=== PATIENT | male | born 1945 | race Caucasian/White ===

== ENCOUNTER 2020-11-07 23:40 | Emergency (ER) | payer MEDICARE, SELFPAY ==
--- NOTE | ~2020-11-07 | XR_ITS ---
XR chest 2V 11/08/2020 00:06 Indication: Shortness of breath Procedure: PA and lateral views of the chest Comparison: Comparison to multiple prior studies sequentially, with oldest reviewed study dated 10/2016. Findings: Status post median sternotomy for CABG. Heart size normal. Chronic scarring right lower ezequiel g zone. No acute focal pneumonia, edema or effusion. No acute osseous abnormality. Impression: 1: No acute cardiopulmonary disease. Reviewed, dictated and finalized at location A. Impression: 1: No acute cardiopulmonary disease.
[2020-11-07 23:46] VITALS: BP 161/82; PULSE 69; RESP 18; TEMP 36.3; O2SAT 98
--- NOTE | 2020-11-08 01:37 | ED.EPISTAXIS ---
HPI - Epistaxis General Chief complaint: Epistaxis Stated complaint: nosebleed Time Seen by Provider: 11/08/20 00:49 Source: patient and RN notes reviewed Mode of arrival: ambulatory Limitations: no limitations History of Present Illness HPI Narrative: This is a 75 year old male with history CAD , stents, CABG on plavix and aspirin who presents for evaluation of epistaxis. He states he felt like something was in his right nose . He soon developed bleeding from his right nostril. He held pressure to his nose for 20 minutes but he was unable to get his bleeding to stop. He has been applying pressure to his nose in triage for 1 hour so he no long has bleeding. He denies postnasal bleeding. He denies being lightheaded or dizzy. Related Data Allergies Allergy/AdvReac Type Severity Reaction Status Date / Time morphine Allergy Unknown Vomiting Verified 05/01/19 05:48 sulfamethoxazole Allergy Unknown Unknown Verified 05/01/19 05:48 trimethoprim Allergy Unknown Unknown Verified 05/01/19 05:48 Review of Systems Review of Systems: All systems reviewed & are unremarkable except as noted in HPI and below PMFSH Past Medical History Medical History (Updated 11/08/20 @ 03:02 by Rdaha Norman MD) Coronary artery disease Diabetes mellitus type 2 in nonobese Surgical History Surgical History (Updated 11/08/20 @ 02:55 by Radha Norman MD) Hx of CABG Family History Family History (Updated 12/11/13 @ 07:13 by DOCTOR UNKNOWN) Sibling Family history of chronic obstructive pulmonary disease Grandparent Diabetes mellitus Mother Patient's mother is Father Patient's father is Social History Social History Smoking end date: 04/16/87 Alcohol intake: never Exam Const: General: no acute distress and alert Orientation/consciousness: patient oriented x3 HENMT: General nose exam: Other nasal findings present (clear bilateral nasal mucous, right nostril no active bleeding. T) Face and sinus: normal facial exam and sinuses nontender Mouth: Yes Normal oral and palatal mucosa present, Yes lip normal, Yes oropharynx normal and Yes moist mucous membranes Resp: Effort & Inspection: normal respiratory effort Skin: General skin exam: normal color Rashes: no rashes Neuro: General: patient oriented x3 and moves all extremities Course Reevaluation(s) Reevaluation #1: PAtient has not had bleeding in 2 hours. I discussed discharge plan and treatment Date: 11/08/20 Time: 02:56 Vital Signs Vital signs: Vital Signs Temperature 97.3 F L 11/07/20 23:46 Pulse Rate 69 11/07/20 23:46 Respiratory Rate 18 11/07/20 23:46 Blood Pressure 161/82 H 11/07/20 23:46 Pulse Oximetry 98 11/07/20 23:46 Temperature 97.3 F L 11/07/20 23:46 Pulse Rate 70 11/08/20 03:15 Respiratory Rate 20 11/08/20 03:15 Blood Pressure 156/80 H 11/08/20 03:15 Pulse Oximetry 100 11/08/20 03:15 Discharge Plan Discharge Clinical Impression: Epistaxis Patient Disposition: Home, Self-Care Condition: Stable Instructions: Antibiotic Form, Nosebleed (ED) Prescriptions: No Action tamsulosin [Flomax] 0.4 mg capsule 0.4 mg PO DAILY Qty: 7 RF: 0 Follow-up/Referrals: Alexander Klein MD [Physician] - [facility],Jin Parra MD [Primary Care Provider] -
[2020-11-08] MEDS: OXYMETAZOLINE HCL 0.05% NAS 15 ML BTL (*BKC) 1 SPRAY NASAL (01:50)
[2020-11-08 03:15] VITALS: BP 156/80; PULSE 70; RESP 20; O2SAT 100
== END 2020-11-08 03:15 | disposition home or self-care (01) ==
PROVIDERS: Emergency Provider General Practice; PCP Internal Medicine
DX: R04.0 Epistaxis (principal); I25.10 Atherosclerotic heart disease of native coronary artery without angina pectoris; E11.9 Type 2 diabetes mellitus without complications; Z95.1 Presence of aortocoronary bypass graft; Z95.5 Presence of coronary angioplasty implant and graft; Z79.01 Long term (current) use of anticoagulants; Z79.82 Long term (current) use of aspirin
CPT/HCPCS: 71046; 99283; A9270

== ENCOUNTER 2020-11-24 20:47 | Emergency (ER) | payer MEDICARE, SELFPAY ==
[2020-11-24 21:34] VITALS: BP 179/83; PULSE 69; RESP 20; TEMP 36.7; O2SAT 99
[2020-11-24 22:47] VITALS: BP 139/81; PULSE 65; TEMP 36.4; O2SAT 96
--- NOTE | 2020-11-25 00:05 | PC.NURSE ---
Dr. Moscoso placed 5.5 Rhinorocket to right nare. Tolerated well, no bleeding noted to either nare at this time.
--- NOTE | 2020-11-25 00:07 | ED.EPISTAXIS ---
HPI - Epistaxis General Chief complaint: Epistaxis Stated complaint: nose bleed Time Seen by Provider: 11/24/20 23:50 Source: patient and family Mode of arrival: ambulatory Limitations: no limitations History of Present Illness HPI Narrative: 75-year-old with a history of CAD on Plavix here with complaints of bleeding from both nares while he was driving home earlier. Patient states he had his nose cauterized on the right side by Dr. Sheridan in [place] . His states that they called ENT and he was told to go to the ER to get the nose packed. complaint: epistaxis Location: right nostril Duration: now resolved Context: other anticoagulant use Related Data Allergies Allergy/AdvReac Type Severity Reaction Status Date / Time morphine Allergy Unknown Vomiting Verified 05/01/19 05:48 sulfamethoxazole Allergy Unknown Unknown Verified 05/01/19 05:48 trimethoprim Allergy Unknown Unknown Verified 05/01/19 05:48 ciprofloxacin [From Cipro] Allergy Unknown Verified 11/24/20 21:39 Review of Systems Review of Systems: All systems reviewed & are unremarkable except as noted in HPI and below Constitutional: Constitutional: Reports no additional constitutional complaints Eyes: Eyes: Reports no additional eye complaints ENT: Reports as per HPI Cardiovascular: Cardiovascular: Reports no additional cardiovascular complaints Respiratory: Respiratory: Reports no additional respiratory complaints Gastrointestinal: Gastrointestinal: Reports no additional gastrointestinal complaints Musculoskeletal: Musculoskeletal: Reports no additional musculoskeletal complaints PMFSH Past Medical History Medical History Coronary artery disease Diabetes mellitus type 2 in nonobese Surgical History Surgical History Hx of CABG Family History Family History Sibling Family history of chronic obstructive pulmonary disease Grandparent Diabetes mellitus Mother Patient's mother is Father Patient's father is Social History Social History Smoking end date: 04/16/87 Alcohol intake: never Exam Narrative: GENERAL: Well-appearing, well-nourished, and in no acute distress. HEAD: Normocephalic, atraumatic. EYES: PERRLA and EOMI. ENT: Minor bleeding present in the right nares, left is normal NECK: Supple. CHEST: Clear to auscultation. No respiratory distress. HEART: Regular rate and rhythm. No murmur heard. Normal peripheral pulses. EXTREMITIES: Normal range of motion. No edema. SKIN: Warm, dry, no rash. NEURO: No focal deficits. Alert and oriented x3. PSYCH: Normal mood and affect. Course Vital Signs Vital signs: Vital Signs Temperature 36.7 C 11/24/20 21:34 Pulse Rate 69 11/24/20 21:34 Respiratory Rate 20 11/24/20 21:34 Blood Pressure 179/83 H 11/24/20 21:34 Pulse Oximetry 99 11/24/20 21:34 Temperature 36.4 C 11/24/20 22:47 Pulse Rate 65 11/24/20 22:47 Respiratory Rate 20 11/24/20 21:34 Blood Pressure 139/81 11/24/20 22:47 Pulse Oximetry 96 11/24/20 22:47 Procedures Epistaxis Control right: Epistaxis Control Date: 11/25/20 Direct Inspection: yes Cautery Used: none Device Inserted: nasal tampon Device Size: 5 Patient Tolerated Procedure: well Epistaxis Control Narrative: no further bleeding Discharge Plan Discharge Clinical Impression: Epistaxis Patient Disposition: Home, Self-Care Condition: Stable Instructions: Antibiotic Form, Nosebleed (ED) Additional Instructions: Continue home medication, follow-up with your ENT doctor can take Tylenol for pain Prescriptions: No Action tamsulosin [Flomax] 0.4 mg capsule 0.4 mg PO DAILY Qty: 7 RF: 0 Follow-up/Referrals: Elena
[2020-11-25 00:20] VITALS: BP 132/80; PULSE 66; RESP 18; O2SAT 98
== END 2020-11-25 00:20 | disposition home or self-care (01) ==
PROVIDERS: Emergency Provider Family Medicine; PCP Internal Medicine
DX: R04.0 Epistaxis (principal); I25.10 Atherosclerotic heart disease of native coronary artery without angina pectoris; E11.9 Type 2 diabetes mellitus without complications; Z79.02 Long term (current) use of antithrombotics/antiplatelets
CPT/HCPCS: 30901; 99282

== ENCOUNTER 2021-09-07 19:14 | Emergency (ER) | payer MEDICARE, SELFPAY ==
[2021-09-07] VITALS (23 sets, daily range): BP systolic 104–142; BP diastolic 60–91; PULSE 74–84; RESP 5–21; TEMP 36.2–36.4; O2SAT 95–100
--- NOTE | ~2021-09-07 | CT_ITS ---
EXAMINATION: CT abdomen pelvis w con DATE: 09/07/2021 21:41 INDICATION: Abdominal pain TECHNIQUE: Computed tomography (CT) of the abdomen and pelvis was performed with 75 mL Omnipaque 300 intravenous contrast. Automated exposure control and iterative reconstruction technique were employed . The dose-length product was 853.42 mGy-cm. COMPARISON: 02/26/2018. FINDINGS: Lower thorax: Bibasilar scar/atelectasis. Calcified granulomas. Heavy coronary artery calcification a nd/or stents. Liver: Left lobe lesion too small to characterize, but likely cyst. Biliary/Gallbladder: Gallbladder is normal. No bile duct dilation. Pancreas: No mass or duct dilation. Spleen: Normal. Adrenals:No mass. Kidneys: Multiple bilateral renal cortical cysts, parapelvic cyst, and lesions that are too small to characterize but also most likely represent cysts. No hydronephrosis. GI tract: Marked gastric distention. No large or small bowel dilation. Mostly fluid-filled colon as c an be seen with diarrheal illness. Normal appendix. Mesentery/Peritoneum: No ascites, mass, or free air. Retroperitoneum: No mass. Mild atherosclerotic arterial calcifications. Pelvis: Mild bladder wall thickening, likely secondary to outlet obstruction from prostatomegaly. Soft Tissues: Small umbilical and bilateral inguinal fat-containing hernias. Bones: No acute osseous finding. IMPRESSION: Marked gastric distention, correlate with any history of gastric motility disorders. This finding may be normal for this patient or secondary to a mild functional ileus. Fluid-filled colon as can be see n with diarrheal illness. Otherwise no acute abdominopelvic process detected. Reviewed, dictated and finalized at location K. IMPRESSION: Marked gastric distention, correlate with any history of gastric motility disor ders. This finding may be normal for this patient or secondary to a mild functi onal ileus. Fluid-filled colon as can be seen with diarrheal illness. Otherwise no acute abdominopelvic process detected.
[2021-09-07 19:46] LABS: Basophils Percent Auto 0.2 % (0.2-1.2); Eosinophils Absolute Auto 0.5 K/mm3 (0-0.3); Eosinophils Percent Auto 3.7 % (0-4.4); Hematocrit 47.8 % (42.0-52.0); Hemoglobin 15.5 g/dL (14.0-18.0); Immature Granulocyte Absolute 0.04 K/mm3 (0.00-0.031); Immature Granulocyte Percent A 0.3 % (0-0.5); Lymphocytes Absolute Auto 2.16 K/mm3 (0.9-3.2); Lymphocytes Percent Auto 17.9 % (18.3-44.2); Mean Corpuscular HGB Conc 32.4 g/dl (32-36); Mean Corpuscular Volume 92.6 fl (80-100); Monocytes Absolute Auto 1.1 K/mm3 (0.1-0.6); Monocytes Percent Auto 9.5 % (2.6-8.5); Neutrophils Absolute Auto 8.2 K/mm3 (1.3-6.7); Neutrophils Percent Auto 68.4 % (45.5-73.1); Platelet Count Result 256 k/mm3 (150-375); Red Blood Count 5.16 M/mm3 (4.6-6.20); Red Cell Distribution Width 13.8 % (11.5-14.5); White Blood Count 12.1 K/mm3 (4.5-10.0)
[2021-09-07 19:56] LABS: Alanine Aminotransferase 40 U/L (6-50); Albumin Level 4.8 g/dL (3.5-5.1); Alkaline Phosphatase 96 U/L (38-126); Anion Gap 10 mmol/L (8-16); Aspartate Amino Transferase 33 U/L (17-59); Bilirubin,Total 1.8 mg/dL (0.2-1.3); Blood Urea Nitrogen 30 mg/dL (9-20); Carbon Dioxide 23 mmol/L (22-30); Chloride 102 mmol/L (98-107); Estimated CRCL calculation 33 ml/min; Estimated Glomerular Filt Rate 37; Glucose 91 mg/dL (65-110); Lipase 467 U/L (23-300); Potassium 4.5 mmol/L (3.4-5.0); Sodium 135 mmol/L (137-145)
[2021-09-07 19:59] LABS: Appearance Urine Clear (Clear); Bilirubin Urine Negative (Negative); Blood Urine Negative (Negative); Color Urine Yellow (Yellow); Glucose Urine UA 2+ mg/dL (Negative); Ketones Urine Negative (Negative); Leukocyte Esterase Ur Negative LEU/UL (Negative); Nitrate Urine Negative (Negative); Protein Urine Negative (Negative); Urobilinogen Urine 0.2 mg/dL (<2.0); pH Urine 5.5 (5.0-9.0)
[2021-09-07 20:26] LABS: RBC Urine 0-2 /hpf (0-2); Squamous Epithelial Cell Urine Rare /hpf (Few); WBC Urine 0-3 /hpf
[2021-09-07 20:27] LABS: Add Urine Microscopic? YES
--- NOTE | 2021-09-07 20:28 | ED.ABDPAIN ---
HPI - Abdominal Pain General Chief Complaint: Abdominal Pain Stated Complaint: Bloating, low blood sugars Time Seen by Provider: 09/07/21 20:12 History of Present Illness HPI narrative: Patient is a 76 year-old male complaining of upper abdominal pain, 5 out of 10, dull, nonradiating accompanied by nausea that started 5 days ago. Patient denies any chest pain, shortness of breath, vomiting, diarrhea, urinary symptoms, fever or chills. Related Data Allergies Allergy/AdvReac Type Severity Reaction Status Date / Time morphine Allergy Unknown Vomiting Verified 05/01/19 05:48 sulfamethoxazole Allergy Unknown Unknown Verified 05/01/19 05:48 trimethoprim Allergy Unknown Unknown Verified 05/01/19 05:48 ciprofloxacin [From Cipro] Allergy Unknown Verified 11/24/20 21:39 Review of Systems Review of Systems: All systems reviewed & are unremarkable except as noted in HPI and below Constitutional: Constitutional: Denies body ache(s), Denies chills, Denies excessive sweating, Denies fatigue, Denies fever(s), Denies headache(s), Denies lethargy, Denies malaise, Denies weakness and Denies weight loss Eyes: Eyes: Denies blurry vision, Denies change in vision and Denies loss of vision ENT: Denies dizziness, Denies ear discharge, Denies headache(s), Denies lip swelling, Denies epistaxis, Denies nasal congestion, Denies neck pain, Denies throat swelling and Denies tongue swelling Cardiovascular: Cardiovascular: Denies chest pain, Denies chest pain at rest, Denies chest pain with activity, Denies diaphoresis, Denies rapid heart rate, Denies edema, Denies irregular heart rhythm, Denies lightheadedness, Denies palpitations, Denies dyspnea and Denies dyspnea on exertion Respiratory: Respiratory: Denies chest congestion, Denies cough, Denies hemoptysis, Denies dyspnea and Denies dyspnea on exertion Gastrointestinal: Gastrointestinal: Denies melena, Denies hematochezia, Denies diarrhea, Denies vomiting and Denies hematemesis Musculoskeletal: Musculoskeletal: Denies abnormal gait, Denies deformity, Denies joint swelling, Denies limited range of motion, Denies neck pain and Denies numbness Neurologic: Denies Abnormal speech present, Denies abnormal gait, Denies confusion, Denies dizziness, Denies headache(s), Denies focal weakness, Denies loss of vision, Denies numbness, Denies Other visual disturbances, Denies Sensory deficit (Neuro) and Denies weakness Psychiatric: Psychiatric: Denies confusion, Denies depression, Denies auditory hallucinations, Denies homicidal ideation and Denies suicidal ideation Endocrine: Endocrine: Denies cold intolerance, Denies excessive sweating, Denies fatigue, Denies heat intolerance and Denies palpitations Hematologic/Lymphatic: Hematologic/Lymphatic: Denies easy bleeding and Denies easy bruising Allergic/Immunologic: Allergic/Immunologic: Denies lip swelling, Denies throat swelling and Denies tongue swelling PMFSH Past Medical History Medical History Coronary artery disease Diabetes mellitus type 2 in nonobese Surgical History Surgical History Hx of CABG Family History Family History Sibling Family history of chronic obstructive pulmonary disease Grandparent Diabetes mellitus Mother Patient's mother is Father Patient's father is Social History Social History Smoking end date: 04/16/87 Alcohol intake: never Exam Const: General: cooperative, healthy appearing, comfortable, no acute distress, well developed, alert and awake; No confusion Orientation/consciousness: oriented to person, oriented to place, oriented to time, patient oriented x3 and No confusion Limitations: no limitations HENMT: Head: normal to inspection, normocephalic and atraumati
[2021-09-07] MEDS: ONDANSETRON INJ 4 MG/2 ML VIAL IV PUSH (21:22)
== END 2021-09-07 22:59 | disposition home or self-care (01) ==
PROVIDERS: Emergency Provider Emergency Medicine; PCP Internal Medicine
DX: R10.10 Upper abdominal pain, unspecified (principal); I25.10 Atherosclerotic heart disease of native coronary artery without angina pectoris; E11.9 Type 2 diabetes mellitus without complications
CPT/HCPCS: 36415; 74177; 80053; 81001; 83690; 85025; 96374; 99284; J2405; Q9967

== ENCOUNTER 2022-04-20 23:11 | Emergency (ER) | payer MEDICARE, SELFPAY ==
[2022-04-20 23:15] VITALS: BP 115/62; PULSE 63; RESP 18; TEMP 36.6; O2SAT 99
[2022-04-20 23:37] LABS: Basophils Percent Auto 0.1 % (0.2-1.2); Eosinophils Absolute Auto 0.8 K/mm3 (0-0.3); Eosinophils Percent Auto 5.6 % (0-4.4); Hematocrit 44.5 % (42.0-52.0); Hemoglobin 14.4 g/dL (14.0-18.0); Immature Granulocyte Absolute 0.06 K/mm3 (0.00-0.031); Immature Granulocyte Percent A 0.4 % (0-0.5); Lymphocytes Absolute Auto 1.74 K/mm3 (0.9-3.2); Mean Corpuscular HGB Conc 32.4 g/dl (32-36); Mean Corpuscular Hemoglobin 30.3 pg (26-34); Mean Corpuscular Volume 93.5 fl (80-100); Mean Platelet Volume 10.2 fl (7.4-10.4); Monocytes Absolute Auto 1.3 K/mm3 (0.1-0.6); Monocytes Percent Auto 8.8 % (2.6-8.5); Neutrophils Absolute Auto 10.6 K/mm3 (1.3-6.7); Neutrophils Percent Auto 73.1 % (45.5-73.1); Platelet Count Result 219 k/mm3 (150-375); Red Blood Count 4.76 M/mm3 (4.6-6.20); Red Cell Distribution Width 13.3 % (11.5-14.5); White Blood Count 14.5 K/mm3 (4.5-10.0)
[2022-04-21 00:03] LABS: Alanine Aminotransferase 27 U/L (6-50); Albumin Level 4.2 g/dL (3.5-5.1); Alkaline Phosphatase 99 U/L (38-126); Anion Gap 5 mmol/L (8-16); Aspartate Amino Transferase 23 U/L (17-59); Bilirubin,Total 0.8 mg/dL (0.2-1.3); Blood Urea Nitrogen 37 mg/dL (9-20); Carbon Dioxide 27 mmol/L (22-30); Chloride 102 mmol/L (98-107); Estimated CRCL calculation 32 ml/min; Estimated Glomerular Filt Rate 37; Glucose 133 mg/dL (65-110); Potassium 4.5 mmol/L (3.4-5.0); Sodium 134 mmol/L (137-145)
--- NOTE | 2022-04-21 04:22 | ED.NAVMDI ---
HPI - Nausea/Vomiting/Diarrhea General Chief complaint: Nausea/Vomiting/Diarrhea Stated complaint: loose stools Time Seen by Provider: 04/21/22 04:12 History of Present Illness HPI Narrative: This is a 76-year-old male with past medical history of CKD, coronary artery disease, diabetes, who presents to the emergency department with multiple episodes of diarrhea. Patient states this began this morning. He denies any known sick contacts, recent travel or eating foul or poorly cooked foods. He denies blood in the stool. He states he had 1 episode of loss of consciousness while on the toilet. He did not hit his head. He denies chest pain, shortness of breath or cold sweats. He is primarily concerned that he may have worsened his kidney function. Related Data Home Medications Medication Instructions Recorded Confirmed aspirin 81 mg tablet,delayed 81 mg PO DAILY 09/21/21 release (Adult Aspirin Regimen) atorvastatin 80 mg tablet 80 mg PO DAILY 09/21/21 carvedilol 25 mg tablet (Coreg) 25 mg PO BID 09/21/21 clopidogrel 75 mg tablet (Plavix) 75 mg PO DAILY 09/21/21 coenzyme Q10 200 mg capsule (Co 200 mg PO DAILY 09/21/21 Q-10) dapagliflozin 10 mg tablet 10 mg PO DAILY 09/21/21 (Farxiga) enalapril maleate 10 mg tablet 10 mg PO DAILY 09/21/21 finasteride 5 mg tablet 5 mg PO DAILY 09/21/21 fluoxetine 20 mg capsule (Prozac) 20 mg PO DAILY 09/21/21 glimepiride 2 mg tablet 2 mg PO QAM 09/21/21 guaifenesin 600 mg tablet, 600 mg PO BID 09/21/21 extended release 12 hr (Mucinex) loratadine 10 mg tablet 10 mg PO DAILY 09/21/21 nitroglycerin 0.4 mg sublingual 0.4 mg sublingual Q5M PRN 09/21/21 tablet sitagliptin phosphate 100 mg 100 mg PO DAILY 09/21/21 tablet (Januvia) Allergies Allergy/AdvReac Type Severity Reaction Status Date / Time morphine Allergy Unknown Vomiting Verified 09/21/21 11:16 sulfamethoxazole Allergy Unknown Unknown Verified 09/21/21 11:16 trimethoprim Allergy Unknown Unknown Verified 09/21/21 11:16 ciprofloxacin [From Cipro] Allergy Unknown Verified 09/21/21 11:16 Review of Systems Review of Systems: CONSTITUTIONAL: Denies fever, chills, or sweats. EYES: Denies visual changes, redness, or discharge. ENT: Denies rhinorrhea, congestion, sore throat, or otalgia. CARDIOVASCULAR: Denies chest pain, palpitations, or edema. RESPIRATORY: Denies cough or dyspnea. GASTROINTESTINAL: Nonbloody diarrhea denies abdominal pain, nausea, vomiting GENITOURINARY: Denies dysuria or hematuria. SKIN: Denies rash or itching. MUSCULOSKELETAL: Denies back pain, joint pain, or myalgia. NEUROLOGIC: Denies headache, numbness, dizziness, or weakness. PSYCHIATRIC: Denies anxiety or depression. [facility] Past Medical History Medical History (Updated 04/21/22 @ 05:24 by Heladio Dickerson MD) CAD (coronary artery disease) of artery bypass graft Coronary artery disease Diabetes mellitus Diabetes mellitus type 2 in nonobese GERD (gastroesophageal reflux disease) Hx of adenomatous colonic polyps Hypertension Obesity Surgical History Surgical History Hx of CABG Family History Family History Sibling Family history of chronic obstructive pulmonary disease Grandparent Diabetes mellitus Mother Patient's mother is Father Patient's father is Social History Social History Smoking status: Former smoker (Quit 40 years ago) Smoking end date: 04/16/87 Alcohol intake: never Exam Narrative: GENERAL: Well-developed, well-nourished, and in no acute distress. HEAD: Normocephalic, atraumatic. EYES: PERRLA and EOMI. ENT: Nares clear, no rhinorrhea or epistaxis. Upper dentures in place, mucous membranes moist. Oropharynx without tonsillar hypertrophy exudate or other lesions. NECK: Supple. No adenopathy o
--- NOTE | 2022-04-21 05:10 | ECG_ITS ---
Measurements Intervals [place] Rate: 74 P: 49 MD: 191 QRS: 15 QRSD: 109 T: 52 QT: 396 QTc: 440 Interpretive Statements SINUS RHYTHM CONSIDER INFERIOR INFARCT, AGE INDETERMINATE ABNORMAL ECG COMPARED TO ECG 08/11/2018 15:56:56 NO SIGNIFICANT CHANGES Electronically Signed On 04-24-2022 14:07:09 ELECTROLOG OPERATOR by Atruro Fried D.O.
[2022-04-21 05:39] LABS: Influenza A QL RT-PCR Negative (Negative); Influenza B QL RT-PCR Negative (Negative); SARS-CoV-2 RNA PCR Negative
[2022-04-21 06:20] VITALS: BP 112/68; PULSE 78; RESP 16; TEMP 36.7; O2SAT 98
== END 2022-04-21 06:23 | disposition home or self-care (01) ==
PROVIDERS: Emergency Provider Preventive Medicine Aerospace Medicine; PCP Internal Medicine
DX: K52.9 Noninfective gastroenteritis and colitis, unspecified (principal); N18.9 Chronic kidney disease, unspecified; E11.22 Type 2 diabetes mellitus with diabetic chronic kidney disease; I12.9 Hypertensive chronic kidney disease with stage 1 through stage 4 chronic kidney disease, or unspecified chronic kidney disease; Z20.822 Contact with and (suspected) exposure to COVID-19; I25.10 Atherosclerotic heart disease of native coronary artery without angina pectoris; K21.9 Gastro-esophageal reflux disease without esophagitis; Z86.010 Personal history of colon polyps; E66.9 Obesity, unspecified; Z68.29 Body mass index [BMI] 29.0-29.9, adult; Z95.1 Presence of aortocoronary bypass graft; Z79.84 Long term (current) use of oral hypoglycemic drugs; Z79.82 Long term (current) use of aspirin; R94.31 Abnormal electrocardiogram [ECG] [EKG]
CPT/HCPCS: 36415; 80053; 85025; 87636; 93005; 99283

== ENCOUNTER 2023-07-23 05:58 | Emergency (ER) | payer MEDICARE, SELFPAY ==
--- NOTE | ~2023-07-23 | CT_ITS ---
CT of the Abdomen and Pelvis: Indication: Abdominal pain Technique: 2.5 mm axial scans were obtained through the abdomen and pelvis following intravenous adm inistration of 100 cc of Omnipaque 350. Dose reduction technique was used on this scan by utilizing a utomated exposure control and iterative reconstruction technique. The dose-length product (DLP) was 6 39.83 mGy-cm. Findings: Scans through the lung bases are demonstrate calcified granulomas. The liver, spleen, pancreas, gallbladder, adrenals and kidneys are within normal limits. There are at herosclerotic calcifications of the aorta. No lymphadenopathy. No bowel obstruction. There is wall thickening of the sigmoid colon and rectum, suggestive of infecti ous/inflammatory colitis. Questionable minimal involvement of the remainder of the large bowel. No ab scess or free air. Images through the pelvis were performed. Urinary bladder unremarkable. Prostate gland enlarged. No o ther pelvic mass seen. No ascites. Impression: Infectious/inflammatory colitis of large bowel, as detailed above, most prominent affecting the sigmo id colon and rectum. Reviewed, dictated and finalized at location M. Impression: Infectious/inflammatory colitis of large bowel, as detailed above, most promine nt affecting the sigmoid colon and rectum.
[2023-07-23 06:00] VITALS: BP 126/68; PULSE 77; RESP 18; TEMP 36.2; O2SAT 99
--- NOTE | 2023-07-23 06:26 | ECG_ITS ---
Measurements Intervals [place] Rate: 73 P: 52 LA: 188 QRS: 19 QRSD: 108 T: 57 QT: 399 AVG RR: 816 QTc: 425 QTCB: 441 QTCF: 426 Interpretive Statements SINUS RHYTHM NORMAL ECG SEE SCANNED COPY FOR SIGNATURE MTDD
[2023-07-23 06:42] LABS: Basophils Percent Auto 0.1 % (0.2-1.2); Eosinophils Absolute Auto 0.7 K/mm3 (0-0.3); Eosinophils Percent Auto 4.4 % (0-4.4); Hematocrit 46.7 % (42.0-52.0); Immature Granulocyte Absolute 0.07 K/mm3 (0.00-0.031); Immature Granulocyte Percent A 0.5 % (0-0.5); Lymphocytes Absolute Auto 1.11 K/mm3 (0.9-3.2); Lymphocytes Percent Auto 7.2 % (18.3-44.2); Mean Corpuscular HGB Conc 32.1 g/dl (32-36); Mean Corpuscular Hemoglobin 29.9 pg (26-34); Mean Corpuscular Volume 93.2 fl (80-100); Mean Platelet Volume 10.7 fl (7.4-10.4); Monocytes Absolute Auto 1.1 K/mm3 (0.1-0.6); Monocytes Percent Auto 7.3 % (2.6-8.5); Neutrophils Absolute Auto 12.3 K/mm3 (1.3-6.7); Neutrophils Percent Auto 80.5 % (45.5-73.1); Platelet Count Result 247 k/mm3 (150-375); Red Blood Count 5.01 M/mm3 (4.6-6.20); Red Cell Distribution Width 13.5 % (11.5-14.5); White Blood Count 15.3 K/mm3 (4.5-10.0)
[2023-07-23 06:52] LABS: Alanine Aminotransferase 23 U/L (6-50); Albumin Level 4.5 g/dL (3.5-5.1); Alkaline Phosphatase 103 U/L (38-126); Anion Gap 10 mmol/L (4-12); Aspartate Amino Transferase 21 U/L (17-59); Bilirubin,Total 1.6 mg/dL (0.2-1.3); Blood Urea Nitrogen 35 mg/dL (9-20); Calcium 9.2 mg/dL (8.4-10.2); Carbon Dioxide 19 mmol/L (22-30); Chloride 103 mmol/L (98-107); Estimated CRCL calculation 29 ml/min; Estimated Glomerular Filt Rate 34; Glucose 186 mg/dL (65-110); Lipase 717 U/L (23-300); Potassium 4.6 mmol/L (3.4-5.0); Sodium 132 mmol/L (137-145)
[2023-07-23 07:13] VITALS: BP 130/62; PULSE 71; RESP 15; O2SAT 100
[2023-07-23 07:17] LABS: Influenza A QL RT-PCR Negative (Negative); Influenza B QL RT-PCR Negative (Negative); RSV RNA, RT-PCR Negative (Negative); SARS-CoV-2 RNA PCR Negative (Negative)
[2023-07-23 07:22] LABS: Appearance Urine Clear (Clear); Bilirubin Urine Negative (Negative); Blood Urine Negative (Negative); Color Urine Yellow (Yellow); Glucose Urine UA 3+ mg/dL (Negative); Ketones Urine Negative (Negative); Leukocyte Esterase Ur Negative LEU/UL (Negative); Nitrate Urine Negative (Negative); Protein Urine Negative (Negative); Specific Grav Ur 1.017 (1.001-1.035); Urobilinogen Urine 0.2 mg/dL (<2.0); pH Urine 5.5 (5.0-9.0)
[2023-07-23 07:30] LABS: Add Urine Microscopic? NO
--- NOTE | 2023-07-23 07:37 | ED.GENADULT ---
HPI - General Adult General Chief complaint: Nausea/Vomiting/Diarrhea Stated complaint: n/v/d x 24 hours Time Seen by Provider: 07/23/23 06:55 History of Present Illness HPI narrative: 78-year-old male presenting to the emergency department for evaluation of nausea vomiting and diarrhea. Patient reports symptoms started few days ago. Patient does report associated left-sided abdominal pain. Patient denies any previous abdominal surgeries other than lithotripsy in his remote past. Related Data Home Medications Medication Instructions Recorded Confirmed aspirin 81 mg tablet,delayed 81 mg PO DAILY 09/21/21 release (Adult Aspirin Regimen) atorvastatin 80 mg tablet 80 mg PO DAILY 09/21/21 carvedilol 25 mg tablet (Coreg) 25 mg PO BID 09/21/21 clopidogrel 75 mg tablet (Plavix) 75 mg PO DAILY 09/21/21 coenzyme Q10 200 mg capsule (Co 200 mg PO DAILY 09/21/21 Q-10) dapagliflozin propanediol 10 mg 10 mg PO DAILY 09/21/21 tablet (Farxiga) enalapril maleate 10 mg tablet 10 mg PO DAILY 09/21/21 finasteride 5 mg tablet 5 mg PO DAILY 09/21/21 fluoxetine 20 mg capsule (Prozac) 20 mg PO DAILY 09/21/21 glimepiride 2 mg tablet 2 mg PO QAM 09/21/21 guaifenesin 600 mg tablet, 600 mg PO BID 09/21/21 extended release 12 hr (Mucinex) loratadine 10 mg tablet 10 mg PO DAILY 09/21/21 nitroglycerin 0.4 mg sublingual 0.4 mg sublingual Q5M PRN 09/21/21 tablet sitagliptin phosphate 100 mg 100 mg PO DAILY 09/21/21 tablet (Januvia) Allergies Allergy/AdvReac Type Severity Reaction Status Date / Time morphine Allergy Unknown Vomiting Verified 07/23/23 06:40 sulfamethoxazole Allergy Unknown Unknown Verified 07/23/23 06:40 trimethoprim Allergy Unknown Unknown Verified 07/23/23 06:40 ciprofloxacin [From Cipro] Allergy Unknown Verified 07/23/23 06:40 Review of Systems Review of Systems: All systems reviewed & are unremarkable except as noted in HPI and below PMFSH Past Medical History Medical History (Updated 07/23/23 @ 10:17 by Scott Canela MD) CAD (coronary artery disease) of artery bypass graft Coronary artery disease Diabetes mellitus Diabetes mellitus type 2 in nonobese GERD (gastroesophageal reflux disease) Hx of adenomatous colonic polyps Hypertension Obesity Surgical History Surgical History Hx of CABG Family History Family History Sibling Family history of chronic obstructive pulmonary disease Grandparent Diabetes mellitus Mother Patient's mother is Father Patient's father is Social History Social History Smoking status: Former smoker (Quit 40 years ago) Smoking end date: 04/16/87 Alcohol intake: never Exam Narrative: APPEARANCE: Well appearing, no pain, no distress, well-nourished. HEAD: normocephalic, atraumatic. EYES: PERRLA/EOMI, conjunctivae clear. NOSE: Normal no drainage EARS:TMS clear with good light reflex. THROAT: Pharynx clear, no exudate. NECK: Supple. No adenopathy, no masses. RESPIRATORY: Airway patent, respirations nonlabored. Clear to auscultation bilaterally, no rales, rhonchi, wheezing. CARDIOVASCULAR: Regular rate and rhythm without murmurs rubs or gallops. ABDOMINAL: Left-sided abdominal pain MUSCULOSKELETAL: Moves all extremities. Strength/ROM intact, No edema, No calf tenderness. NEURO: Alert. Cranial nerves II through XII intact. Good gait. Good coordination SKIN: Warm, dry. Normal Color Course Course Emergency Course: Patient was diagnosed with colitis and discharged home with antibiotics. Vital Signs Vital signs: Vital Signs Temperature 97.2 F L 07/23/23 06:00 Pulse Rate 77 07/23/23 06:00 Respiratory Rate 18 07/23/23 06:00 Blood Pressure 126/68 07/23/23 06:00 Pulse Oximetry 99 07/23/23 06:00 Oxygen Delivery R
[2023-07-23 08:12] VITALS: BP 124/75; PULSE 75; RESP 15; O2SAT 99
[2023-07-23] MEDS: SODIUM CHLORIDE 0.9% IV 1,000 ML 999 ML IV CONT (09:14)
[2023-07-23 10:04] VITALS: BP 136/70; PULSE 65; RESP 13; O2SAT 99
[2023-07-23 10:17] VITALS: BP 136/70; PULSE 64; RESP 13; O2SAT 98
[2023-07-23 10:31] VITALS: BP 127/55; PULSE 64; RESP 13; TEMP 36.4; O2SAT 100
== END 2023-07-23 10:37 | disposition home or self-care (01) ==
PROVIDERS: Emergency Medicine; Emergency Provider Emergency Medicine; PCP Internal Medicine
DX: K52.9 Noninfective gastroenteritis and colitis, unspecified (principal); Z20.822 Contact with and (suspected) exposure to COVID-19; I25.10 Atherosclerotic heart disease of native coronary artery without angina pectoris; E11.9 Type 2 diabetes mellitus without complications; K21.9 Gastro-esophageal reflux disease without esophagitis; I10 Essential (primary) hypertension
CPT/HCPCS: 36415; 74177; 80053; 81003; 83690; 85025; 87637; 93005; 96360; 99284; J7030; Q9967